=== PATIENT | male | born 1930 | race Caucasian/White ===

== ENCOUNTER 2017-06-07 21:21 | Inpatient (IN) | payer OTHER, BC ==
[~2017-06-07] VITALS: Ht 175.3 cm; Wt 80.5 kg
[~2017-06-07 21:21] MED LIST: BACTROBAN CREAM15 GM TP; BROVANA15 MCG/2 M IH; CIPROFLOXACIN250 MG PO; CLARITIN10 MG PO; DILAUDID2 MG PO; GABAPENTIN600 MG PO; KLONOPIN0.5 M1 PO; LEXAPRO10 MG PO; MELOXICAM7.5 MG PO; MYSOLINE50 MG PO; NYSTATIN100000 UN1 PO; OXYMORPHONE HCL5 M1 PO; PRILOSEC20 MG PO; PROVENTIL2.5 MG/3 M IH; PULMICORT1 MG/2 ML IH; SEROQUEL50 MG PO
[2017-06-07 22:42] LABS: HEMATOCRIT 40.6 % (38.0-50.0); MCH 30.4 PG (29.0-34.0); MCV 92.1 FL (86-99); MEAN PLAT.VOLUME 11.1 uM^3 (9.0-12.4); PLATELET COUNT 279 K/uL (156-360); RBC DIS.WIDTH-CV 13.3 % (11.8-14.6); RBC DIS.WIDTH-SD 45.6 % (39-53); RED BLOOD COUNT 4.41 M/uL (4.00-5.50); WHITE BLOOD COUNT 13.2 K/uL (4.1-10.2)
[2017-06-07] MEDS ORDERED: ANORO ELLIPTA1 EACH IH (22:55)
[2017-06-07] MEDS ORDERED: FLOMAX0.4 MG PO (22:55)
[2017-06-07 23:04] LABS: TROP-I INTERPRETATION NEGATIVE; TROPONIN-I < 0.01 ng/mL (0.0-0.30)
[2017-06-07 23:25] LABS: INTER. NORMALIZED RATIO 1.1; PROTHROMBIN TIME 12.9 SEC (10.2-12.9)
[2017-06-07 23:27] LABS: PTT 26.8 SEC (25-37)
[2017-06-07 23:31] LABS: CHLORIDE 109 mEq/L (99-109); POTASSIUM 5.1 mEq/L (3.7-5.4); SODIUM 141 mEq/L (136-147)
[2017-06-07 23:33] LABS: GLUCOSE 126 mg/dL (70-99)
[2017-06-07 23:34] LABS: ANION GAP 6 MEQ/L (2-14)
[2017-06-07 23:35] LABS: TOTAL BILIRUBIN 0.4 mg/dL (0.0-1.0)
[2017-06-07 23:37] LABS: ALKALINE PHOSPHATASE 60 IU/L (3-129); GFR ESTIMATE (CALCULATED) 51 mL/min/
[2017-06-07 23:38] LABS: UREA NITROGEN (BUN) 31 mg/dL (9-23)
[2017-06-07 23:40] LABS: LIPASE 3 U/L (1.0-51.0)
[2017-06-08] MEDS ORDERED: FLUAD 201745 MCG/0.5 IM (01:00)
[2017-06-08] MEDS ORDERED: HYLANDS PO (01:01)
[2017-06-08] MEDS ORDERED: MELATONIN5 M1 PO (01:01)
[2017-06-08 02:20] LABS: ADD MIUA? YES; BILIRUBIN NEGATIVE; BLOOD NEGATIVE; COLOR YELLOW ((YELLOW)); GLUCOSE (STRIP) NEGATIVE; KETONES NEGATIVE; LEUKOCYTES LARGE; NITRITE NEGATIVE; PROTEIN (STRIP) NEGATIVE; SPECIFIC GRAVITY 1.035 (1.000-1.030); UROBILINOGEN 0.2 MG/DL (0.2-1.0)
[2017-06-08 02:25] LABS: BACTERIA 1+ /HPF; EPITHELIAL CELLS NONE SEEN /HPF; MUCUS TRACE /LPF; UCUL ADDED? YES; WHITE BLOOD CELLS 20-30 /HPF (0-5)
[2017-06-08 02:59] VITALS: BP 131/68
[2017-06-08 04:57] LABS: HEMATOCRIT 33.4 % (38.0-50.0); MCH 30.1 PG (29.0-34.0); MCHC 32.9 G/DL (30.0-36.0); MCV 91.3 FL (86-99); PLATELET COUNT 252 K/uL (156-360); RBC DIS.WIDTH-CV 13.4 % (11.8-14.6); RBC DIS.WIDTH-SD 45.1 % (39-53); RED BLOOD COUNT 3.66 M/uL (4.00-5.50); WHITE BLOOD COUNT 9.7 K/uL (4.1-10.2)
[2017-06-08 07:30] VITALS: BP 120/59
[2017-06-08 12:07] VITALS: BP 141/60
[2017-06-08 12:48] LABS: HEMATOCRIT 31.8 % (38.0-50.0); MCH 30.5 PG (29.0-34.0); MCHC 33.3 G/DL (30.0-36.0); MCV 91.4 FL (86-99); MEAN PLAT.VOLUME 10.8 uM^3 (9.0-12.4); PLATELET COUNT 251 K/uL (156-360); RBC DIS.WIDTH-CV 13.5 % (11.8-14.6); RBC DIS.WIDTH-SD 45.2 % (39-53); RED BLOOD COUNT 3.48 M/uL (4.00-5.50); WHITE BLOOD COUNT 9.4 K/uL (4.1-10.2)
[2017-06-08 19:20] VITALS: BP 132/72
[2017-06-08 23:24] VITALS: BP 155/68
[2017-06-09 03:28] VITALS: BP 119/89
[2017-06-09 04:46] LABS: CHLORIDE 112 mEq/L (99-109); SODIUM 139 mEq/L (136-147)
[2017-06-09 04:48] LABS: GLUCOSE 106 mg/dL (70-99)
[2017-06-09 04:50] LABS: ANION GAP 4 MEQ/L (2-14); TOTAL BILIRUBIN 0.4 mg/dL (0.0-1.0)
[2017-06-09 04:52] LABS: ALKALINE PHOSPHATASE 51 IU/L (3-129); GFR ESTIMATE (CALCULATED) 56 mL/min/
[2017-06-09 04:53] LABS: UREA NITROGEN (BUN) 22 mg/dL (9-23)
[2017-06-09 08:16] VITALS: BP 122/70
[2017-06-09 08:23] LABS: HEMATOCRIT 28.7 % (38.0-50.0); MCV 94.1 FL (86-99)
[2017-06-09 16:02] VITALS: BP 125/82
[2017-06-09 20:00] VITALS: BP 124/61
[2017-06-09 23:21] VITALS: BP 131/61
[2017-06-10 04:08] VITALS: BP 118/58
[2017-06-10 08:00] VITALS: BP 131/92
[2017-06-10] MEDS ORDERED: PANTOPRAZOLE SO40 MG PO (10:21)
[2017-06-10 11:16] VITALS: BP 115/84
[2017-06-10] MEDS ORDERED: CIPROFLOXACIN500 M1 PO (11:36)
[2017-06-10 13:07] LABS: HEMATOCRIT 31.2 % (38.0-50.0); MCV 93.1 FL (86-99)
== END 2017-06-10 14:06 | disposition home or self-care (01) | DRG 378 ==
LOC: EME → EDBD 21:21 → 5WEST 06-08 01:26 → EDOF 06-08 01:26 → ENRESERV 06-08 01:27 → 5WEST 06-08 02:42 → ENPENDDIS 06-10 → CANRESERV 06-10 00:23 → ENRESERV 06-10 00:23 → 5WEST 06-10 14:06
PROVIDERS: Emergency Medicine; Internal Medicine; Nurse Practitioner Adult Health; Nurse Practitioner Family
PROC: 0W3P8ZZ Control Bleeding in Gastrointestinal Tract, Via Natural or Artificial Opening Endoscopic (ICD-10-PCS; principal; 2017-06-09)
DX: K25.4 Chronic or unspecified gastric ulcer with hemorrhage (principal); Q27.33 Arteriovenous malformation of digestive system vessel; N17.9 Acute kidney failure, unspecified; J44.9 Chronic obstructive pulmonary disease, unspecified; I10 Essential (primary) hypertension; I73.9 Peripheral vascular disease, unspecified; E78.5 Hyperlipidemia, unspecified; F31.9 Bipolar disorder, unspecified; G89.29 Other chronic pain; H91.90 Unspecified hearing loss, unspecified ear; I71.4 Abdominal aortic aneurysm, without rupture; I95.9 Hypotension, unspecified; N40.0 Benign prostatic hyperplasia without lower urinary tract symptoms; F17.200 Nicotine dependence, unspecified, uncomplicated; Z88.5 Allergy status to narcotic agent; Z79.891 Long term (current) use of opiate analgesic; Z87.11 Personal history of peptic ulcer disease; Z90.3 Acquired absence of stomach [part of]; Z89.431 Acquired absence of right foot
CPT/HCPCS: 71010; 74177; 80053; 81003; 83690; 84484; 85014; 85018; 85027; 85610; 85730; 86850; 86900; 86901; 87077; 87086; 87186; 93005; 94799; 99281; 99285; C9113; J2060; J3010; J7030; J7042

== ENCOUNTER → 2018-02-01 | Outpatient (CLI) | payer OTHER, BC ==
[~2018-02-01] MED LIST changes: +ANORO ELLIPTA1 EACH IH; +CIPROFLOXACIN500 M1 PO; +FLOMAX0.4 MG PO; +FLUAD 201745 MCG/0.5 IM; +HYLANDS PO; +MELATONIN5 M1 PO; +PANTOPRAZOLE SO40 MG PO
== END | disposition home or self-care (01) ==
DX: R13.12 Dysphagia, oropharyngeal phase (principal); Z87.09 Personal history of other diseases of the respiratory system
CPT/HCPCS: 92611 GN; G8996 GN; G8997 GN; G8998 GN